=== PATIENT | male | born 1945 | race Caucasian/White ===

== ENCOUNTER 2018-09-17 11:19 | Inpatient (IN) | payer OTHER, MEDICARE ==
[2018-09-17] VITALS (7 sets, daily range): BP systolic 98–156; BP diastolic 63–98
[~2018-09-17] VITALS: Ht 175.3 cm; Wt 80.6 kg
--- NOTE | ~2018-09-17 | EKG ---
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1945 Requested By: Deon Renae Order Number: [id number] MD: Ethan Murguia Measurements Intervals [place] Rate: 68 P: -23 IL: 193 QRS: -27 QRSD: 80 T: -6 QT: 413 QTc: 440 Interpretive Statements Sinus rhythm Borderline left axis deviation Nonspecific T wave abnormality Compared to ECG 09/17/2018 11:29:14 Sinus rhythm has replaced atrial fibrillation Electronically Signed On 09-18-2018 8:00:18 CDT by Ethan Murguia [email or web address] <ELECTRONICALLY SIGNED> By: Ethan Murguia MD, [facility] 09/18/1800 Ethan Murguia MD, [facility] /EPI
--- NOTE | ~2018-09-17 | EKG ---
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 : 1945 Requested By: Jerry Sheridan Order Number: [id number] MD: Ethan Murguia Measurements Intervals [place] Rate: 159 P: FL: QRS: -17 QRSD: 76 T: 32 QT: 302 QTc: 492 Interpretive Statements Atrial fibrillation with rapid V-rate Borderline left axis deviation ST depression, probably rate related Compared to ECG 10/17/2013 21:21:03 Sinus rhythm no longer present ST (T wave) deviation still present Electronically Signed On 09-17-2018 17:08:36 CDT by Ethan Murguia [email or web address] <ELECTRONICALLY SIGNED> By: Ethan Murguia MD, [facility] 09/17/18 1708 1129 [id number] Ethan Murguia MD, [facility] /EPI
--- NOTE | ~2018-09-17 | EKG ---
[address] [place] [address] ELECTROCARDIOGRAM REPORT Name: SARA DOSS Room #: 208-P ADM IN M.R.#: [id number] Admission: 09/17/18 Attend Phys: Frederick Funk MD Discharge: Date of : 41 Report #: [id number] THIS REPORT FOR: //name// 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: : 1945 Requested By: Deon Renae Order Number: [id number] MD: Ethan Murguia Measurements Intervals [place] Rate: 71 P: -36 OR: 190 QRS: -32 QRSD: 81 T: 1 QT: 394 QTc: 429 Interpretive Statements Sinus rhythm Left axis deviation Abnormal R-wave progression, early transition Compared to ECG 09/18/2018 06:50:36 No significant change was found Electronically Signed On 09-19-2018 8:51:43 CDT by Ethan Murguia [email or web address] <ELECTRONICALLY SIGNED> By: Ethan Murguia MD, [facility] 09/19/18 0851 8 8 Ethan Murguia MD, [facility] /EPI
--- NOTE | ~2018-09-17 | HC ---
[place] [address] CONSULTATION Name: SARA DOSS Room #: 208-P [facility] IN ..#: [id number] Admission: 09/17/18 Attend Phys: Frederick Funk MD Discharge: Date of : 41 Report #: [id number] THIS REPORT FOR: //name// CC: Frederick Yang MD DATE OF SERVICE: 09/17/2018 CARDIOLOGY CONSULTATION HISTORY OF PRESENT ILLNESS: The patient is a 73-year-old white male who I was asked to see in the hospital today after he was noted to be in atrial fibrillation. The patient apparently presented 4 years ago. He felt his heart beating fast and irregular, lasted about 12 hours. He finally went to the Emergency Room. By the time he came to the Emergency Room; however, his heart was beating regularly. He was felt to have had an episode of atrial fibrillation. He refused anticoagulation. Nuclear stress test showed no ischemia. He was placed on Rythmol for about a year, but since he had no recurrence, they actually stopped Rythmol in 2014. Since that time, he has done well with no significant palpitations or syncope. He was doing well until recently. About 2 weeks ago, he developed a sore throat, earache. He was coughing. He denied any fever. About 5:30 this morning, he felt his heart beating fast and irregular. He came to see his primary care physician. ECG showed atrial fibrillation. He was sent to the Emergency Room and admitted. He denies a history of myocardial infarction or chest pain. He has been short of breath recently. He denied any edema. He has had no syncope or bleeding. PAST MEDICAL HISTORY: Significant for previous removal of skin cancer. He has had a tonsillectomy. He has hypertension, hyperlipidemia. MEDICATIONS: Consist of amlodipine, aspirin, Lipitor, lisinopril, metoprolol, omeprazole. ALLERGIES: HE HAS INTOLERANCE TO WINTER GREEN. FAMILY HISTORY: His mom had a stent and dad had bypass surgery. SOCIAL HISTORY: He is . He and his live in [place], [place]. 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 No smoking. No alcohol abuse. REVIEW OF SYSTEMS: He has had no history of stroke. He had asthma as a child. He has had a previous esophageal gastric ulcer. No liver disease, no kidney disease. He had skin cancer removed. He wears glasses. No chronic skin condition. No psychiatric illness. [address] [place] [address] CONSULTATION Name: SARA DOSS Room #: 208-P [facility] IN [facility]#: [id number] Admission: 09/17/18 Attend Phys: Frederick Funk MD Discharge: Date of : 41 Report #: [id number] PHYSICAL EXAMINATION: GENERAL: Revealed an elderly male, lying in bed, appeared in no acute distress. VITAL SIGNS: Initially, he had a blood pressure of 140/100, pulse is 160. He was afebrile. HEENT: He was anicteric. Conjunctivae pink. Mucous members moist. NECK: Neck veins nondistended. No carotid bruits. Neck supple. CHEST: Clear to auscultation. CARDIOVASCULAR: Irregular rhythm. No significant murmur. ABDOMEN: Soft. EXTREMITIES: Had no edema. SKIN: Warm and dry. NEUROLOGIC: Nonfocal. LYMPH: No adenopathy. MUSCULOSKELETAL: No joint effusion. RADIOLOGICAL DATA: His ECG on admission showed atrial fibrillation with rapid ventricular response rate, nonspecific T-wave changes. Workup in the Emergency Room, he had a chest x-ray today that showed normal heart size, clear lung lema. He had a CT scan of the chest using a PE protocol that showed no pulmonary embolus, normal heart size. LABORATORY DATA: Today, sodium 141, potassium 3.9, his BUN is 20, creatinine 1.3. Troponin 0.09, this afternoon it is 0.13. BNP 507. White blood cell count 12.3, hemoglobin 16.7. IMPRESSION AND RECOMMENDATIONS: 1. Paroxysmal atrial fibrillation. I would recommend starting sotalol and anticoagulation. If he fails to convert, he might require electrical cardioversion. 2. Hypertension. The patient has been on a beta rocael, BORIS inhibitor and calcium rocael. 3. Hyperlipidemia. The patient is on a statin drug. 4. Recent upper respiratory infection. No evidence of pneumonia. 5. History of anxiety. The patient is on Librium. <ELECTRONICALLY SIGNED> By: Deon Renae MD, FACC 09/19/18 1000 1801 0600 Deon Renae MD, FACC /nt
--- NOTE | ~2018-09-17 | 2DMMODE ---
[facility] [place] [address] 2 D/M-MODE ECHOCARDIOGRAM Name: SARA DOSS Tobias Room #: 208-P [facility] IN ..#: [id number] Admission: 09/17/18 Attend Phys: Frederick Funk MD Discharge: Date of : 41 Date of Service: 09/18/18 1504 Report #: [id number] THIS REPORT FOR: //name// APPROVED REPORT Study performed: 09/18/2018 08:23:01 EXAM: Comprehensive 2D, Doppler, and color-flow Echocardiogram Patient Location: Echo lab Room #: 208 Status: routine BSA: 1.94 HR: 69 bpm BP: 114/72 mmHg Rhythm: NSR Other Information Study Quality: Good/low parasternal window Indications Afib with RVR. Hx: Afib, HTN, HLP. 2D Dimensions RVDd: 26.97 mm IVSd: 11.50 (7-11mm) LVOT Diam: 20.19 (18-24mm) LVDd: 40.06 mm PWd: 11.73 (7-11mm) Ascending Ao: 35.28 (22-36mm) LVDs: 25.67 (25-40mm) Aortic Root: 32.07 mm Volumes Left Atrial Volume (Systole) Single Plane 4CH: 36.69 mL Single Plane 2CH: 39.62 mL Aortic Valve AoV Peak Kj.: 1.18 m/s AO Peak Gr.: 5.57 mmHg LVOT Max P.49 mmHg LVOT Max V: 1.06 m/s BILL Vmax: 2.87 cm2 Mitral Valve E/A Ratio: 0.8 MV Decel. Time: 244.50 ms MV E Max Kj.: 0.55 m/s MV A Kj.: 0.68 m/s [facility] [place] [address] 2 D/M-MODE ECHOCARDIOGRAM Name: SARA DOSS Tobias Room #: 208-P [facility] IN ..#: [id number] Admission: 09/17/18 Attend Phys: Frederick Funk MD Discharge: Date of : 41 Date of Service: 09/18/18 1504 Report #: [id number] MV PHT: 70.90 ms IVRT: 73.82 ms Pulmonary Vein P Vein S: 0.61 m/s P Vein D: 0.36 m/s P Vein S/D Ratio: 1.69 Tricuspid Valve TR Peak Kj.: 1.99 m/s TR Peak Gr.: 15.86 mmHg Left Ventricle The left ventricle is normal size. There is normal LV segmental wall motion. Mild concentric left ventricular hypertrophy. Left ventricular systolic function is normal. LVEF is 60-65%. Mild diastolic dysfunction is present (impaired relaxation pattern). Right Ventricle The right ventricle is normal size. The right ventricular systolic function is normal. Atria Left atrium is mildly dilated. The right atrium size is normal. Aortic Valve Aortic valve is mildly calcified. Trace to mild aortic regurgitation. There is no aortic valvular stenosis. Mitral Valve The mitral valve is normal in structure. Mild mitral regurgitation. Tricuspid Valve The tricuspid valve is normal in structure. Trace tricuspid regurgitation. Estimated PAP is 25 mm Hg Pulmonic Valve Pulmonic valve is poorlyl visualized. There is no pulmonic valvular regurgitation. Great Vessels The aortic root is normal in size. The ascending aorta is normal in size. IVC is not well visualized. [facility] [address] [place] [address] 2 D/M-MODE ECHOCARDIOGRAM Name: SARA DOSS Room #: 208-P [facility] IN .R.#: [id number] Admission: 09/17/18 Attend Phys: Frederick Funk MD Discharge: Date of : 41 Date of Service: 09/18/18 1504 Report #: [id number] Pericardium There is no pericardial effusion. <Conclusion> Mild concentric left ventricular hypertrophy. LVEF is 60-65%. Left atrium is mildly dilated. Aortic valve is mildly calcified. Mild mitral regurgitation. <ELECTRONICALLY SIGNED> By: Deon Renae MD, FACC 09/18/18 1504 1504 1504 Deon Renae MD, FACC /INF
[~2018-09-17 11:19] MED LIST: AMLODIPINE BESY10 MG; ASPIRIN EC81 M1; BRAIN MIGHT-DH1 EACH PO; CHLORDIAZEPOXID10 MG PO; DIGITEK250 MC1; FISH OIL + D31 EACH; LISINOPRIL10 MG; LISINOPRIL40 MG; MAGNESIUM100 MG; POTASSIUM20 PO; SIMVASTATIN40 MG; [UNRECOGNIZED DRUG - OTHER]
[2018-09-17 11:46] LABS: ABSOLUTE NEUTROPHILS 9.9 thou/uL (1.4-8.2); BASOPHILS 0.4 % (0.0-2.0); EOSINOPHILS 1.4 % (0.0-3.0); HEMATOCRIT 48.3 % (42.0-52.0); HEMOGLOBIN 16.7 gm/dL (14.0-18.0); LYMPHOCYTES 9.8 % (24.0-44.0); MCH 31.1 pg (26.0-34.0); MCHC 34.6 g/dL (28.0-37.0); MCV 89.8 fL (80.0-100.0); MONOCYTES 7.7 % (1.0-8.0); PLATELET COUNT 196 thou/uL (150-400); POLYS 80.7 % (36.0-66.0); RBC 5.37 mil/uL (4.50-6.00); RDW 13.6 % (10.5-14.5); WBC 12.3 thou/uL (4.0-11.0)
[2018-09-17] MEDS ORDERED: ASPIRIN325 PO (11:53)
[2018-09-17] MEDS ORDERED: LIPITOR40 MG PO (11:54)
[2018-09-17] MEDS ORDERED: CHLORDIAZEPOXID10 MG PO (11:54)
[2018-09-17] MEDS ORDERED: ZPAK PO (11:54)
[2018-09-17] MEDS ORDERED: FLONASE 0.05%50 MCG NASAL (11:54)
[2018-09-17 11:55] LABS: CALCIUM 10.1 mg/dL (8.5-10.1); CREATININE 1.3 mg/dL (0.7-1.3); POTASSIUM 3.9 mmol/L (3.5-5.1)
[2018-09-17] MEDS ORDERED: PRINIVIL20 MG PO (11:55)
[2018-09-17] MEDS ORDERED: MAGOX 400400 MG PO (11:55)
[2018-09-17] MEDS ORDERED: TOPROL XL25 MG PO (11:56)
[2018-09-17] MEDS ORDERED: OMEPRAZOLE20 M2 PO (11:56)
[2018-09-17 12:13] LABS: TROPONIN-I 0.09 ng/mL (<0.06)
[2018-09-17 15:12] LABS: MAGNESIUM 2.3 mg/dL (1.8-2.4)
[2018-09-18 01:11] VITALS: BP 117/73
[2018-09-18 02:39] LABS: ABSOLUTE NEUTROPHILS 7.4 thou/uL (1.4-8.2); BASOPHILS 0.6 % (0.0-2.0); EOSINOPHILS 4.3 % (0.0-3.0); HEMATOCRIT 45.6 % (42.0-52.0); HEMOGLOBIN 15.4 gm/dL (14.0-18.0); LYMPHOCYTES 19.4 % (24.0-44.0); MCH 30.5 pg (26.0-34.0); MCHC 33.7 g/dL (28.0-37.0); MCV 90.4 fL (80.0-100.0); MONOCYTES 8.1 % (1.0-8.0); PLATELET COUNT 176 thou/uL (150-400); POLYS 67.6 % (36.0-66.0); RBC 5.04 mil/uL (4.50-6.00); RDW 13.8 % (10.5-14.5); WBC 10.9 thou/uL (4.0-11.0)
[2018-09-18 03:18] VITALS: BP 104/69
[2018-09-18 03:33] LABS: ALBUMIN 3.6 g/dL (3.4-5.0); ANION GAP 9 mmol/L (7-16); BUN 19 mg/dL (7-18); CHLORIDE 104 mmol/L (98-107); CHOLESTEROL 119 mg/dL (<200); CO2 29 mmol/L (21-32); CREATININE 1.3 mg/dL (0.7-1.3); GLUCOSE 101 mg/dL (74-106); HDL CHOLESTEROL 31 mg/dL (>40); LDL CHOLESTEROL 65 mg/dL (<100); MAGNESIUM 2.1 mg/dL (1.8-2.4); POTASSIUM 4.1 mmol/L (3.5-5.1); SGOT 17 U/L (15-37); SGPT 30 U/L (30-65); SODIUM 142 mmol/L (136-145); TC:HDL 3.8 Ratio (Not establshd); TOTAL BILIRUBIN 0.9 mg/dL (<0.1-1.0); TRIGLYCERIDE 117 mg/dL (<150); VLDL 23 mg/dL (<40)
[2018-09-18 03:37] LABS: SERUM ASSESSMENT Clear
[2018-09-18 07:26] VITALS: BP 114/72
[2018-09-18] MEDS ORDERED: XARELTO15 MG PO (10:31)
[2018-09-18 11:28] VITALS: BP 109/61
[2018-09-18] MEDS ORDERED: ELIQUIS2.5 MG PO (12:55)
[2018-09-18 15:14] VITALS: BP 104/63
[2018-09-18 19:32] VITALS: BP 109/61
[2018-09-19 05:47] VITALS: BP 130/74
[2018-09-19 08:55] LABS: HEMATOCRIT 46.2 % (42.0-52.0); HEMOGLOBIN 15.9 gm/dL (14.0-18.0); MCH 31.1 pg (26.0-34.0); MCHC 34.5 g/dL (28.0-37.0); MCV 90.3 fL (80.0-100.0); RBC 5.12 mil/uL (4.50-6.00); RDW 13.8 % (10.5-14.5); WBC 8.9 thou/uL (4.0-11.0)
[2018-09-19 09:05] LABS: CALCIUM 9.1 mg/dL (8.5-10.1); CREATININE 1.4 mg/dL (0.7-1.3); MAGNESIUM 2.1 mg/dL (1.8-2.4); POTASSIUM 3.9 mmol/L (3.5-5.1)
[2018-09-19] MEDS ORDERED: SORINE 80 MG TA80 M1 PO (10:18)
[2018-09-19] MEDS ORDERED: MUCINEX600 MG PO (10:18)
[2018-09-19] MEDS ORDERED: XARELTO15 MG PO (10:18)
[2018-09-19 10:30] VITALS: BP 128/86
[2018-09-19 10:31] VITALS: BP 128/86
== END 2018-09-19 11:10 | disposition home or self-care (01) | DRG 308 ==
LOC: ER 11:19 → 2N 14:19 → EROBS 14:19 → 2N 15:51 → ENTRNSPT 09-19 11:00 → EDTRNSPTSTS 09-19 11:02 → 2N 09-19 11:10
PROVIDERS: Emergency Medicine; Internal Medicine; Nurse Practitioner
DX: I48.0 Paroxysmal atrial fibrillation (principal); E43 Unspecified severe protein-calorie malnutrition; I10 Essential (primary) hypertension; E78.5 Hyperlipidemia, unspecified; E83.42 Hypomagnesemia; F41.9 Anxiety disorder, unspecified; J06.9 Acute upper respiratory infection, unspecified; K21.9 Gastro-esophageal reflux disease without esophagitis; Z79.82 Long term (current) use of aspirin; Z79.899 Other long term (current) drug therapy; Z88.8 Allergy status to other drugs, medicaments and biological substances; Z87.891 Personal history of nicotine dependence; Z82.49 Family history of ischemic heart disease and other diseases of the circulatory system; Z86.73 Personal history of transient ischemic attack (TIA), and cerebral infarction without residual deficits
CPT/HCPCS: 10081